=== PATIENT | male | born 1965 | race Caucasian/White ===

== ENCOUNTER 2021-02-06 07:55 | Outpatient (REF) | payer OTHER, SELFPAY ==
[2021-02-06 10:23] LABS: Alanine Aminotransferase 23 U/L (0-40); Albumin Level 4.3 g/dL (3.5-5.0); Alkaline Phosphatase 71 U/L (39-117); Anion Gap 15 (12-20); Aspartate Amino Transferase 18 U/L (5-37); Bilirubin Total 0.4 mg/dL (0.0-1.0); Blood Urea Nitrogen 20 mg/dL (9-16); Calcium 9.8 mg/dL (8.4-10.2); Carbon Dioxide 26 mmol/L (22-29); Chloride 104 mmol/L (96-108); Cholesterol 296 mg/dL; Estimated Glomerular Filt Rate 56; Glucose Fasting 80 mg/dL (60-99); HDL Cholesterol 49 mg/dL; LDL Cholesterol Calculated 203 mg/dl; Potassium 4.8 mmol/L (3.3-5.1); Sodium 140 mmol/L (135-145); Total Protein 7.3 g/dL (6.5-8.0); Triglycerides 221 mg/dL
[2021-02-06 10:46] LABS: Prostate Specific Antigen Scr 0.81 ng/mL (<0.05-4.0); TSH reflex Free T4 1.34 uIU/mL (0.32-4.0)
== END 2021-02-06 07:56 | disposition home or self-care (01) ==
LOC: HO.LAB 07:55
PROVIDERS: Absent Provider Nurse Practitioner Family; PCP Nurse Practitioner Family; Visit Provider Nurse Practitioner Family
DX: Z01.818 Encounter for other preprocedural examination (principal); Z12.5 Encounter for screening for malignant neoplasm of prostate; K59.00 Constipation, unspecified
CPT/HCPCS: 36415; 80053; 80061; 84153; 84443; 99202

== ENCOUNTER 2021-08-15 07:23 | Outpatient (REF) | payer OTHER, SELFPAY ==
[2021-08-15 11:25] LABS: Binax Internal Control QC Valid; Binax Now Covid-19 Ag Negative (Negative)
== END 2021-08-15 07:24 | disposition home or self-care (01) ==
LOC: HO.HMGCLDS 07:23
PROVIDERS: Visit Provider Internal Medicine
DX: Z20.822 Contact with and (suspected) exposure to COVID-19 (principal)
CPT/HCPCS: 36415; C9803

== ENCOUNTER 2021-12-24 07:23 | Day surgery (SDC) | payer OTHER, SELFPAY ==
[2021-03-11 20:06] VITALS: BMI 26.6
--- NOTE | 2021-12-23 10:02 | P.CONAN_ITS ---
Documented by User: Joana Nevarez NP 12/23/21 10:07 HPI - Anesthesia Eval Consult details Narrative: 56yo M Colonoscopy Methadone daily PMFSH Active Problems Active Problems: All Active Problems (Updated 04/24/21 @ 10:04 by Wolf Lawson, [facility]) Depression, major, recurrent (Acute) Depression (Acute) Anxiety (Acute) Physical exam (Acute) Screening PSA (prostate specific antigen) (Acute) Screening for colon cancer (Acute) Dyslipidemia (Acute) Past Medical History Medical History Anxiety Back pain Depression Hypercholesteremia Methadone dependence Social History Social History Alcohol intake: current Alcohol intake frequency: does not drink Patient Tobacco Use Status: Current everyday Tobacco user Tobacco use type: Cigarette Cigarettes Per Day: 2 Years Smoked: 15 years old Substance Use Frequency: Occasionally Are you DNR?: No Advance Directives: No Advance Directives Information Provided: Yes Advance Directives on File: No Recently lost weight without trying: Yes How much weight loss: 2-13 pounds Eating poorly because of decreased appetite: Yes Nutrition screen score: 4 Meds Allergies Allergy/AdvReac Type Severity Reaction Status Date / Time No Known Allergies Allergy Verified 03/13/21 13:05 Home Medications Medication Instructions Recorded Confirmed Last Taken Type methadone 10 mg/mL oral concentrate 150 mg PO DAILY ml 02/06/21 03/13/21 Unknown History Exam Exam Date and Time: December 23, 2021 1002 Height,Weight and Vital Signs: Height 5 ft 6 in Weight 74.843 kg Assessment and Plan Assessment Anesthesia Assessment: Chart Reviewed Documented by User: Martell Cheng MD 12/24/21 08:56 PMFSH Past Medical History Medical History Anxiety Back pain Depression Hypercholesteremia Methadone dependence Family History Family history of problems with anesthesia: No Surgical History History of Problems with Anesthesia: No Social History Social History Alcohol intake: current Alcohol intake frequency: does not drink Patient Tobacco Use Status: Current everyday Tobacco user Tobacco use type: Cigarette Cigarettes Per Day: 2 Years Smoked: 15 years old Substance Use Frequency: Occasionally Are you DNR?: No Advance Directives: No Advance Directives Information Provided: Yes Advance Directives on File: No Recently lost weight without trying: Yes How much weight loss: 2-13 pounds Eating poorly because of decreased appetite: Yes Nutrition screen score: 4 Meds Allergies Allergy/AdvReac Type Severity Reaction Status Date / Time No Known Allergies Allergy Verified 03/13/21 13:05 Home Medications Medication Instructions Recorded Confirmed Last Taken Type methadone 10 mg/mL oral concentrate 150 mg PO DAILY ml 02/06/21 03/13/21 Unknown History Exam Airway Mallampati Class: II TM Dist: >3cm Neck ROM: Full Denture: Upper Loose/Missing/Broken Teeth: Yes (Poor dentition, mostly missing/broken) Assessment and Plan Assessment Anesthesia Assessment: Anesthesia Plan Discussed Final Anesthetic Review Family History of Problems with Anesthesia: No History of Problems with Anesthesia: No NPO: Yes ASA Class: II Final Preanesthetic Review: No Changes in Pt Med Stat, Meds/Allgs Chart Reviewed, Consent Obtained/Reviewed and Anes Risks/Benef Reviewed Patient Risk: Low Procedure Risk: Low Anesthetic Plan Anesthetic Plan: MAC: Disposition: Standard PACU
[2021-12-24 07:44] VITALS: BP 152/101; PULSE 68; RESP 20; TEMP 36.7; O2SAT 98
[2021-12-24] MEDS: Lactated Ringers 1,000 ML 100 ML IVCONT (07:58)
--- NOTE | 2021-12-24 08:28 | MHC.SHP ---
Pre-Procedural Eval Section A Date of Service: 12/24/21 Section B Chief Complaint: screening Relevant Family History (Specify if Yes): No Relevant Social History: Tobacco Use (ex drug user ) Present Medications: see Short Stay Collaborative assessment Medical History: Significant History (anxiety Back pain Depression Hypercholesteremia Methadone dependence) History of Previous Operations: No relevant previous surgery Allergies: Allergies Allergy/AdvReac Type Severity Reaction Status Date / Time No Known Allergies Allergy Verified 03/13/21 13:05 Review of Systems Sugical H&P ROS: Negative: Constitution, Cardiovascular, Respiratory, Neurological, Psychiatric, Hem-Onc, Allergic/Immunologic, Gastrointestinal, Genitourinary, Musculoskeletal, Integumentary, Endocrine and Eyes/Ears/Nose/Throat Exam Surgical H&P Exam: Normal: HEENT, Normal: Heart, Normal: Lungs, Normal: Extremities, Normal: Abdomen, Normal: Skin and Normal: Neurological Plan Diagnosis/Plan: Unchanged I have reviewed the history and physical and performed a pertinent physical examination on my patient. No changes have occurred unless specified.
--- NOTE | 2021-12-24 08:30 | P.OP_ITS ---
Operative Note Operative Note Date of Service: 12/24/21 Narrative: Operative Information Procedure Description: Colonoscopy Indication: screening colonoscopy Anesthesia: MAC COLONOSCOPY Instrument: Olympus variable stiffness pediatric scope 190L Colonoscopy Monitoring: Vital signs and clinical assessment, continuous EKG monitoring, Pulse oximetry, Carbon Dioxide monitoring and blood pressure monitoring were done throughout the procedure. Colon withdrawal time was 10 minutes. Procedure: The patient was placed in the left lateral decubitis position and pre-procedure medications were administered. After a digital rectal examination of the ano-rectum, the video colonoscope was inserted into the rectum and advanced through the colon to the cecum/TI. The colonoscope was slowly withdrawn in a retrograde panoramic fashion and the colon mucosa was carefully examined including a retroflexed view of the rectum. Findings and interventions are described below. Procedure Difficulty: easy Findings: Terminal Ileum-normal Right sided retroflexion was normal Cecum:normal Ascending Colon: normal Transverse Colon -normal Descending Colon:normal Sigmoid Colon: normal Rectum: Retroflexion with small internal hemorrhoids, grade I Anorectum - normal Colon preparation: [place] Bowel Preparation Scale Right colon; 1-2 Transverse colon: 2 Left colon; 1-2 (0 = Unprepared colon segment with mucosa not seen due to solid stool that cannot be cleared. 1 = Portion of mucosa of the colon segment seen, but other areas of the colon segment not well seen due to staining, residual stool and/or opaque liquid. 2 = Minor amount of residual staining, small fragments of stool and/or opaque liquid, but mucosa of colon segment seen well. 3 = Entire mucosa of colon segment seen well with no residual staining, small fragments of stool or opaque liquid) Impression and Post Procedure Diagnosis: internal hemorrhoids Plan: High fiber diet leaflet Avoid straining at stool, epsom salts and sitz bath, anusol supps or cream Repeat Colonoscopy in 5-6 years due to murky prep in some areas or earlier if clinically indicated Above findings were reviewed with the patient and relevant handouts were provided if indicated.
--- NOTE | 2021-12-24 08:30 | PM.OP ---
Brief Operative Note Date of Service: 12/24/21 Pre-op diagnosis: colon screening Post-op diagnosis: same Procedure: see op note Surgeon: Billy Chen MD Anesthesia: MAC Was an Special Certificate Dictator used for this Procedure?: No Estimated blood loss (mL): 0 Condition: stable Disposition: PACU
[2021-12-24 09:20] VITALS: BP 128/74; PULSE 67; RESP 16; TEMP 36.3; O2SAT 97
[2021-12-24 09:35] VITALS: BP 130/76; PULSE 55; RESP 16; TEMP 36.4; O2SAT 97
== END 2021-12-24 10:02 | disposition home or self-care (01) ==
PROVIDERS: PCP Nurse Practitioner Family; Visit Provider Internal Medicine Gastroenterology
PROC: 0DJD8ZZ Inspection of Lower Intestinal Tract, Via Natural or Artificial Opening Endoscopic (ICD-10-PCS; CPT 45378; principal; 2021-12-24 08:30)
DX: Z12.11 Encounter for screening for malignant neoplasm of colon (principal); K64.0 First degree hemorrhoids; K59.00 Constipation, unspecified; F32.9 Major depressive disorder, single episode, unspecified; Z79.899 Other long term (current) drug therapy; F11.20 Opioid dependence, uncomplicated; F17.210 Nicotine dependence, cigarettes, uncomplicated
CPT/HCPCS: 45378

== ENCOUNTER 2023-11-23 09:18 | Outpatient (AMB) | payer OTHER, SELFPAY ==
--- NOTE | 2023-11-23 09:22 | MHC.PC.OV ---
Vital Signs 11/23/23 09:24 Weight 163 lb BP 110/74 Blood Pressure Location Lt brachial Position Sitting Pulse 93 Pulse Source Pulse Oximeter Pulse Oximetry (%) 97 Oxygen Delivery Method Room Air Intake Visit Reasons: F/u & paperwork Intake Note: Patient here to discuss sleep issues and right shoulder pain that radiates down to the hip and have [facility] paperwork filled out. Allergies No Known Allergies Allergy (Verified 11/23/23 11:11) Medication List - Last Reconciled 11/23/23 by DEVAN Arroyo gabapentin 100 mg PO BEDTIME methadone 35 mg PO DAILY Tobacco use date assessed: 11/23/23 Dental Screening Dental Screen Date: 11/23/23 Did you have a dental visit in the last 12 months?: No Did you have a dental problem in the last 6 months where you did not have access to dental care?: No Was dental information given to patient?: No HPI F/u & paperwork HPI Details Pt reports increased anxiety and depression. He reports insomnia as well. He is seeing a therapist twice a month. Will have team speak with pt regarding a psychiatrist. Will send low-dose gabapentin (for anxiety and for sleep). Denies any SI and HI. [facility] Medical History Back pain Anxiety Depression Hypercholesteremia Methadone dependence Surgical History Hx of colonoscopy Social History Alcohol intake: current Alcohol intake frequency: does not drink Patient Tobacco Use Status: Current everyday Tobacco user Tobacco use type: Cigarette Cigarettes Per Day: 2 Years Smoked: 15 years old Questionnaire AUDIT C Alcohol Use Questionnaire (AUDIT-C) 1. How often do you have a drink containing alcohol?: Never 3. How often do you have six or more drinks on one occasion?: Never Total Score: 0 Score Reviewed/Action Taken: No Review of Systems Const Reports as per HPI Physical exam (Primary Care) Vital Signs: Last Vital Signs Pulse 93 11/23/23 09:24 BP 110/74 11/23/23 09:24 Pulse Ox 97 11/23/23 09:24 Oxygen Delivery Method Room Air 11/23/23 09:24 Tobacco/Smoking Status: Tobacco use Status Tobacco use date assessed 11/23/23 11/23/23 09:26 Patient Tobacco Use Status Current everyday Tobacco 11/23/23 09:23 Tobacco use type Cigarette 11/23/23 09:23 Const General: cooperative Orientation/consciousness: patient oriented x3 Resp Effort & Inspection: normal respiratory effort Auscultation: clear to auscultation bilaterally Cardio Rate: regular rate Rhythm: regular rhythm Heart sounds: S1 normal heart sound present and S2 normal heart sound present Neuro General: patient oriented x3 Extrem Right lower extremity: no edema Left lower extremity: no edema Psych Appearance: grossly normal Mental Status: mental status grossly normal Speech and movement: Normal speech and movement present Affect: normal affect Attitude: cooperative Thought process: Normal thought process present Thought content: Normal thought content present Insight: Good insight present (Psych) Judgement: Good judgement present (Psych) Assessment and Plan Assessment & Plan (1) Depression: Code(s): F32.9 - Major depressive disorder, single episode, unspecified Plan: Has a therapist, message sent to for possible psychiatrist, denies any si or hi (2) Anxiety: Code(s): F41.9 - Anxiety disorder, unspecified Plan: as above (3) PTSD (post-traumatic stress disorder): Code(s): F43.10 - Post-traumatic stress disorder, unspecified Plan: paper filled out for SSDI Plan The patient agreed to the use of a medical research associate for this encounter. Scribed for DEVAN Adame by Kavita Burnette medical research associate, on 11/23/2023 at 09:40 EST. Medications: New gabapentin 100 mg PO BEDTIME 30 caps 2RF anxiety and insomnia Coding Level of Care Code Est Pt Level 3 (11306) Diagnoses Depression F32.9 Anxiety F41.9 PTSD (post-traumatic stress disorder) F43.10
[2023-11-23 09:24] VITALS: BP 110/74; PULSE 93; O2SAT 97
== END 2023-11-23 10:02 | disposition home or self-care (01) ==
PROVIDERS: PCP Nurse Practitioner Family; Visit Provider Nurse Practitioner Family
DX: F32.9 Major depressive disorder, single episode, unspecified (principal); F41.9 Anxiety disorder, unspecified; F43.10 Post-traumatic stress disorder, unspecified
CPT/HCPCS: 99213

== ENCOUNTER 2024-02-22 10:04 | Outpatient (AMB) | payer OTHER, SELFPAY ==
--- NOTE | 2024-02-22 10:19 | MHC.PC.OV ---
Vital Signs 02/22/24 10:21 Height 5 ft 6 in Weight 167 lb BMI 27.0 BP 110/70 Blood Pressure Location Rt brachial Position Sitting Pulse 73 Pulse Source Pulse Oximeter Pulse Oximetry (%) 96 Oxygen Delivery Method Room Air Intake Visit Reasons: follow up med Intake Note: Patient here to follow up on gabapentin and would like an increase. Pt repo Allergies No Known Allergies Allergy (Verified 02/22/24 10:22) Medication List - Last Reconciled 02/22/24 by DEVAN Arroyo gabapentin 200 mg PO BEDTIME methadone 35 mg PO DAILY Tobacco use date assessed: 11/23/23 Dental Screening Dental Screen Date: 11/23/23 HPI follow up med HPI Details insomnia: gabapentin does help. Pt reports that trazodone dries me out . Will increase dose from 100mg daily to 200mg daily. depression: recent friend . pt is requesting a Male provider, will speak with [facility] for possible placement with a make therapist. Pt denies any si or HI REPLACED BY [facility] Medical History Back pain Anxiety Depression Hypercholesteremia Methadone dependence Surgical History Hx of colonoscopy Social History Housing: Apartment Alcohol intake: current Alcohol intake frequency: does not drink Patient Tobacco Use Status: Current everyday Tobacco user Tobacco use type: Cigarette Cigarettes Per Day: 2 Years Smoked: 15 years old Current occupational status: unemployed Cognitive needs: No Hearing needs: No Vision needs: No Questionnaire PHQ-9 Over the last 2 weeks, how often have you been bothered by any of the following problems? 1. Little interest or pleasure in doing things: several days 2. Feeling down, depressed, or hopeless: nearly every day 3. Trouble falling or staying asleep, or sleeping too much: nearly every day 4. Feeling tired or having little energy: nearly every day 5. Poor appetite or overeating: nearly every day 6. Feeling bad about yourself - or that you are a failure or have let yourself or your family down: nearly every day 7. Trouble concentrating on things, such as reading the newspaper or watching television: nearly every day 8. Moving or speaking so slowly that other people could have noticed. Or the opposite - being so fidgety or restless that you have been moving around a lot more than usual: nearly every day 9. Thoughts that you would be better off or of hurting yourself in some way: not at all Total score: 22 Depression Screening Interpretation: Positive (has a psychiatrist. ) Depression Screening Done: Yes 74434 - PHQ-9 Billing: Yes Source: Developed by Drs. Fabian Hinkle, Kanwal Jerez, Jed Gomez and colleagues, with an educational junior from [employer]. Thrive Questionnaire Date Thrive assessed: 02/22/24 I am a: Patient What is your living situation today?: I have a steady place to live Within the past 12 months, did the food you bought not last and you didn't have the money to get more?: Sometimes True Within the past 12 months, did you worry whether your food would run out before you got money to buy more?: Sometimes True Do you have trouble paying for medicines?: No Do you have trouble getting transportation to medical appointments?: No Do you have trouble paying your heating and electricity bill?: No Do you have trouble taking care of your child, family member or friend?: No Do you have trouble with day-to-day activities such as bathing, preparing meals, shopping, managing finances, etc.?: No Are you currently unemployed and looking for a job?: Yes Are you interested in more education?: No Please select the resources that you would like help with: Housing/Long Term Currently or been in a relationship where the following occur: No concerns reported THRIVE Score: 2 AUDIT C Alcohol Use Questionnaire (AUDIT-C) 1. How often do you have a drink containing alcohol?: 2-4 times a month 2. How many drinks containing alcohol do you have on a typical day when you are drinking?: 3 or 4 3. How often do you have six or more drinks on one occasion?: Less than monthly Total Score: 4 ANA-7 AMB Questionnaire ANA-7 Date ANA - 7 assessed: 02/22/24 Feeling nervous, anxious, or on edge: 3 = Nearly every day Not being able to stop or control worryin = Nearly every day Worrying too much about different things: 3 = Nearly every day Trouble relaxin = Nearly every day Being so restless that it is hard to sit still: 3 = Nearly every day Becoming easily annoyed or irritable: 3 = Nearly every day Feeling afraid as if something awful might happen: 3 = Nearly every day Total ANA-7 score (0-4 normal; 5-9 mild; 10-14 moderate; 15-21 severe): 21 Source: Developed by Drs. Fabian Hinkle, Kanwal Jerez, Jed Gomez and colleagues, with an educational junior from [employer]. ANA-7 Assessment Billing ANA-7 Assessment Tool: ANA-7 Assessment 62445 Physical exam (Primary Care) Vital Signs: Last Vital Signs Pulse 73 02/22/24 10:21 BP 110/70 02/22/24 10:21 Pulse Ox 96 02/22/24 10:21 Oxygen Delivery Method Room Air 02/22/24 10:21 BMI result Body Mass Index 27.0 Tobacco/Smoking Status: Tobacco use Status Tobacco use date assessed 11/23/23 02/22/24 10:21 Patient Tobacco Use Status Current everyday Tobacco 02/22/24 10:21 Tobacco use type Cigarette 02/22/24 10:21 PHQ-9: PHQ-9 Score PHQ-9: Total score 22 02/22/24 10:34 Depression Screening Interpretation: Positive (has a psychiatrist. ) Thrive Assessment: Date of Thrive Assessment Date Thrive assessed 02/22/24 02/22/24 10:21 Currently or been in a relationship where the following occur: No concerns reported Const General: cooperative, healthy appearing, comfortable and no acute distress Resp Effort & Inspection: normal respiratory effort Auscultation: clear to auscultation bilaterally Cardio Rate: regular rate Rhythm: regular rhythm Heart sounds: S1 normal heart sound present and S2 normal heart sound present Extrem Right lower extremity: no edema Left lower extremity: no edema Psych Appearance: grossly normal Mental Status: mental status grossly normal Speech and movement: Normal speech and movement present Affect: normal affect Attitude: cooperative Thought process: Normal thought process present Assessment and Plan Assessment & Plan (1) Anxiety: Code(s): F41.9 - Anxiety disorder, unspecified (2) Insomnia: Code(s): G47.00 - Insomnia, unspecified Plan: will cont to monitor. gabapentin increaed from 100mg to 200mg Medications: New gabapentin 200 mg (2 x 100 mg) PO BEDTIME 60 caps 3RF anxiety and insomnia Coding Level of Care Code Est Pt Level 3 (73359) Diagnoses Anxiety F41.9 Insomnia G47.00 Additional Codes ANA-7 Assessment Billing - ANA-7 Assessment Tool: ANA-7 Assessment 30103 ([id number])
[2024-02-22 10:21] VITALS: BP 110/70; PULSE 73; O2SAT 96; BMI 27.0
== END 2024-02-22 13:39 | disposition home or self-care (01) ==
PROVIDERS: PCP Nurse Practitioner Family; Visit Provider Nurse Practitioner Family
DX: F41.9 Anxiety disorder, unspecified (principal); G47.00 Insomnia, unspecified
CPT/HCPCS: 99213

== ENCOUNTER 2024-10-11 08:28 | Outpatient (AMB) | payer OTHER, SELFPAY ==
[2024-10-11 08:39] VITALS: BP 132/76; PULSE 82; TEMP 36.8; O2SAT 97; BMI 27.9
--- NOTE | 2024-10-11 08:39 | A.OFFPC_ITS ---
Vital Signs 10/11/24 08:39 Height 5 ft 6 in Weight 173 lb BMI 27.9 BP 132/76 Blood Pressure Location Lt brachial Position Sitting Pulse 82 Pulse Source Pulse Oximeter Temp 98.2 F Temp Source Oral Pulse Oximetry (%) 97 Oxygen Delivery Method Room Air Intake Visit Reasons: PE Allergies No Known Allergies Allergy (Verified 10/11/24 09:03) Medication List - Last Reconciled 10/11/24 by EMILY Arroyo gabapentin 200 mg (2 x 100 mg) PO BEDTIME methadone 35 mg PO DAILY Tobacco use date assessed: 10/11/24 Dental Screening Dental Screen Date: 10/11/24 Did you have a dental visit in the last 12 months?: No Did you have a dental problem in the last 6 months where you did not have access to dental care?: No Was dental information given to patient?: Patient declined HPI PE HPI Details History of Present Illness The patient is a 59-year-old male presenting for a wellness visit and routine physical examination. He denies any acute symptoms such as chest pain, respiratory problems, gastrointestinal issues, or urinary difficulties. His mental health conditions, specifically anxiety and depression, are noted and consistently monitored, although presently stable. The patient maintains adherence to his preventive care screenings, including colon cancer screenings, and plans to have a PSA lab test for prostate health, reflecting awareness of mt s health maintenance needs. Health Maintenance - Colon cancer screening is up to date. - Prostate-Specific Antigen (PSA) test o rdered for prostate health. Social History Review of Systems - General: Denies any chest pain or shor tness of breath. - Gastrointestinal: Denies blood in stoo l, constipation, diarrhea. - Genitourinary: Denies urinary problems . - Mental Health: Reports history of anxi ety and depression, currently feels stable. Physical Exam General: Cooperative, healthy appearing, comfortable, no acute distress and well developed Orientation: Patient oriented x3 Limitations: No limitations Head: Normal to inspection Ears: Hearing grossly normal bilaterally Nose: Normal external nose present Face and sinus: Normal facial exam Eyes: Appearance normal, both eyes and all related structures Neck: Normal visual inspection and Yes full ROM Respiratory: Normal respiratory effort and able to speak in complete sentences. Clear to auscultation bilaterally Cardiovascular: Regular rate and rhythm. Normal S1 and S2 GI: Normal to inspection. Soft to palpation and nontender Skin: No rashes or lesions noted Neuro: Patient oriented x3 Extremities: Normal to inspection Results Plan The patient will continue the current approach to managing his anxiety and depression, given the stability he reports. Adherence to preventive health screenings is reinforced, with plans for a PSA test to ensure comprehensive prostate health evaluation. Given the patient's position on deferring a digital rectal exam, the focus will remain on alternative screening methods. All actions emphasize maintaining stability and prevention of future health complications. Discussion Notes During the consultation, I emphasized the importance of adhering to preventive screenings, particularly noting his upcoming PSA test. The patient's preference to avoid a digital rectal exam was discussed, and alternative prostate health screening options were considered. We also reviewed his stable mental health and continued support in managing anxiety and depression. The patient consented to the outlined plan, appreciating the current management strategy and preventive focus. Patient Instructions - Proceed with the PSA lab test for pros olivas health monitoring. - Maintain current management for anxiet y and depression. - Follow up with future preventive healt h screenings as advised. - Monitor for any new symptoms or change s and seek medical advice if they occur. [facility] Medical History Back pain Anxiety Depression Hypercholesteremia Methadone dependence Surgical History Hx of colonoscopy Social History Housing: Apartment Alcohol intake: current Alcohol intake frequency: does not drink Patient Tobacco Use Status: Current everyday Tobacco user Tobacco use type: Cigarette Cigarettes Per Day: 2 Years Smoked: 15 years old e-Cigarette/Vaping Use: Never Used Current occupational status: unemployed Cognitive needs: No Hearing needs: No Vision needs: No Questionnaire PHQ-9 Over the last 2 weeks, how often have you been bothered by any of the following problems? 1. Little interest or pleasure in doing things: several days 2. Feeling down, depressed, or hopeless: several days 3. Trouble falling or staying asleep, or sleeping too much: nearly every day 4. Feeling tired or having little energy: nearly every day 5. Poor appetite or overeating: nearly every day 6. Feeling bad about yourself - or that you are a failure or have let yourself or your family down: nearly every day 7. Trouble concentrating on things, such as reading the newspaper or watching television: not at all 8. Moving or speaking so slowly that other people could have noticed. Or the opposite - being so fidgety or restless that you have been moving around a lot more than usual: nearly every day 9. Thoughts that you would be better off or of hurting yourself in some way: not at all Total score: 17 Depression Screening Interpretation: Positive (denies any si or hi, refuses therapist currently) Depression Screening Follow-up: Existing condition Depression Screening Done: Yes 53854 - PHQ-9 Billing: Yes Source: Developed by Drs. Fabian Hinkle, Kanwal Jerez, Jed Gomez and colleagues, with an educational junior from [employer]. Thrive Questionnaire Date Thrive assessed: 10/11/24 I am a: Patient What is your living situation today?: I have a steady place to live Within the past 12 months, did the food you bought not last and you didn't have the money to get more?: Sometimes True Within the past 12 months, did you worry whether your food would run out before you got money to buy more?: Sometimes True Do you have trouble paying for medicines?: No Do you have trouble getting transportation to medical appointments?: No Do you have trouble paying your heating and electricity bill?: No Do you have trouble taking care of your child, family member or friend?: No Do you have trouble with day-to-day activities such as bathing, preparing meals, shopping, managing finances, etc.?: No Are you currently unemployed and looking for a job?: Yes Are you interested in more education?: No Please select the resources that you would like help with: None Currently or been in a relationship where the following occur: No concerns reported THRIVE Score: 2 AUDIT C Alcohol Use Questionnaire (AUDIT-C) 1. How often do you have a drink containing alcohol?: 2-4 times a month 2. How many drinks containing alcohol do you have on a typical day when you are drinking?: 3 or 4 3. How often do you have six or more drinks on one occasion?: Less than monthly Total Score: 4 Score Reviewed/Action Taken: Yes ANA-7 AMB Questionnaire ANA-7 Date NAA - 7 assessed: 10/11/24 Feeling nervous, anxious, or on edge: 3 = Nearly every day Not being able to stop or control worryin = Nearly every day Worrying too much about different things: 3 = Nearly every day Trouble relaxin = Nearly every day Being so restless that it is hard to sit still: 3 = Nearly every day Becoming easily annoyed or irritable: 3 = Nearly every day Feeling afraid as if something awful might happen: 1 = Several days Total ANA-7 score (0-4 normal; 5-9 mild; 10-14 moderate; 15-21 severe): 19 Source: Developed by Drs. Fabian Hinkle, Kanwal Jerez, Jed Gomez and colleagues, with an educational junior from [employer]. ANA-7 Assessment Billing ANA-7 Assessment Tool: ANA-7 Assessment 16668 (denies any si or hi, refuses therapist currently. ) Physical exam (Primary Care) Vital Signs: Last Vital Signs Temp 98.2 F 10/11/24 08:39 Pulse 82 10/11/24 08:39 BP 132/76 10/11/24 08:39 Pulse Ox 97 10/11/24 08:39 Oxygen Delivery Method Room Air 10/11/24 08:39 BMI result Body Mass Index 27.9 Tobacco/Smoking Status: Tobacco use Status Tobacco use date assessed 10/11/24 10/11/24 08:45 Patient Tobacco Use Status Current everyday Tobacco 10/11/24 08:45 Tobacco use type Cigarette 10/11/24 08:45 e-Cigarette/Vaping Use Never Used 10/11/24 08:45 PHQ-9: PHQ-9 Score PHQ-9: Total score 17 10/11/24 08:45 Depression Screening Interpretation: Positive (denies any si or hi, refuses therapist currently) Depression Screening Follow-up: Existing condition Thrive Assessment: Date of Thrive Assessment Date Thrive assessed 10/11/24 10/11/24 08:45 Currently or been in a relationship where the following occur: No concerns reported Coding Level of Care Code New Pt Prev Care 40-64y(82297) Diagnoses Physical exam Z00.00 Screening PSA (prostate specific antigen) Z12.5 Additional Codes PHQ-9 - 38144 - PHQ-9 Billing: Yes ([id number]) ANA-7 Assessment Billing - ANA-7 Assessment Tool: ANA-7 Assessment 38254 ([id number]) Assessment & Plan Assessment & Plan (1) Physical exam: Code(s): Z00.00 - Encounter for general adult medical examination without abnormal findings Category: Medical (2) Screening PSA (prostate specific antigen): Code(s): Z12.5 - Encounter for screening for malignant neoplasm of prostate Category: Medical Plan . Orders: Orders Lipid Panel Today Z00.00 - Encounter for general adult medical examination without abnormal findings Complete Blood Count Auto Diff Today Z00.00 - Encounter for general adult medical examination without abnormal findings Comprehensive [place]. Panel Fast Today Z00.00 - Encounter for general adult medical examination without abnormal findings TSH reflex Free T4 Today Z00.00 - Encounter for general adult medical examination without abnormal findings UA CC w/rflx Micro + Cult Today Z00.00 - Encounter for general adult medical examination without abnormal findings Prostate Specific Antigen Scr Today Z12.5 - Encounter for screening for malignant neoplasm of prostate Medications: Refilled gabapentin 200 mg (2 x 100 mg) PO BEDTIME 60 caps 3RF anxiety and insomnia
--- OUTSIDE RECORDS SUMMARY | 2024-10-11 08:50 | XMS_ITS | Clinical Summary ---
Author Organization [facility] Address [address] [place] [address] Care Team Providers Care Reading Professor Name Role Phone Unavailable Primary Care Provider Unavailabl e Source Comments PLEASE NOTE, if this patient is a minor, it may be UNLAWFUL to discuss sensitive information that is contained in these records (such as FAMILY PLANNING, MENTAL HEALTH or SUBSTANCE ABUSE) with the minor patient's parent or other person without the patient's specific authorization.[facility] Allergies No known active allergies Family History * Patient is adopted Medical History Relation Name Comments Mental illness Father Relation Name Status Comments Father Alive Mother Alive Sister Social History Tobacco Use Types Packs/Day Years Used Date Smoking Tobacco: Every Day Tobacco Cessation:Ready to Q uit: Yes; Counseling Given: Yes Comments:Using NIcotine patches Alcohol Use Standard Drinks/Week Comments No 0 (1 standard drink = 0.6 oz pur e alcohol) Sex and Gender Information Value Date Recorded Sex Assigned at Not on file Legal Sex Male 12:42 PM PDT Gender Identity Not on file Sexual Orientation Not on file Last Filed Vital Signs Vital Sign Reading Time Taken Comments Blood Pressure 91/56 01/22/2016 11:36 AM EDT Pulse 55 01/22/2016 11:36 AM EDT Temperature 37.1 ??C (98.8 ??F) 01/22/2016 11:36 AM E DT Respiratory Rate 12 01/22/2016 11:36 AM EDT Oxygen Saturation - - Inhaled Oxygen Concentration - - Weight 65.8 kg (145 lb) 01/22/2016 11:36 AM EDT Height 167.6 cm (5' 6 ) 01/22/2016 11:36 AM EDT Body Mass Index 23.4 01/22/2016 11:36 AM EDT Plan of Treatment Not on file Insurance [facility] Member Subscriber Plan / Payer (Ef fective 2016-Present) Name:Eric Bennett Relation to Subscriber:Self Name:Sabrina Eric Payer ID:[id number] Group ID:Not on file Type:Medicaid Address: [facility] [address] [place] [address]
== END 2024-10-11 09:33 | disposition home or self-care (01) ==
PROVIDERS: PCP Nurse Practitioner Family; Visit Provider Nurse Practitioner Family
DX: Z00.00 Encounter for general adult medical examination without abnormal findings (principal); Z12.5 Encounter for screening for malignant neoplasm of prostate

== ENCOUNTER → 2024-10-11 08:28 | Outpatient (BNVA) | payer OTHER, SELFPAY | PROVIDERS: PCP Nurse Practitioner Family; Visit Provider Nurse Practitioner Family | DX: Z00.00 Encounter for general adult medical examination without abnormal findings (principal); E78.00 Pure hypercholesterolemia, unspecified | CPT/HCPCS: 96127; 99386 ==